=== PATIENT | female | born 1975 | race Caucasian/White ===

== ENCOUNTER 2019-06-09 21:24 | Emergency (ER) | payer SELFPAY ==
[~2019-06-09] VITALS: Ht 160 cm; Wt 102.2 kg
[2019-06-09 21:49] VITALS: BP 163/107
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
[2019-06-09] MEDS ORDERED: HYDROcodone/APAP 5/325MG 1 TAB TABLET PO ONE (22:30)
== END 2019-06-09 22:10 | disposition home or self-care (01) ==
LOC: ER 21:24
DX: T23.231A Burn of second degree of multiple right fingers (nail), not including thumb, initial encounter (principal); L53.9 Erythematous condition, unspecified; X12.XXXA Contact with other hot fluids, initial encounter; Y93.89 Activity, other specified; Y92.89 Other specified places as the place of occurrence of the external cause; Y99.8 Other external cause status
CPT/HCPCS: 99281